=== PATIENT | female | born 1960 | race American Indian/Alaskan Native ===

== ENCOUNTER 2018-05-30 06:37 | Day surgery (SDC) | payer BC ==
[2018-05-30 07:09] VITALS: BMI 45.7
[2018-05-30 07:28] VITALS: TEMP 97.6
--- NOTE | 2018-05-30 08:32 | CP.SDSHP ---
Same Day Surgery H & P - History Proposed Procedure: colonoscopy Pre-Op Diagnosis: screening - Previous Medical/Surgical History Cardiac: Hypertension Pulmonary: Asthma - Allergies Allergies: Allergies HAY FEVER Allergy (Uncoded 05/30/18 07:15) CONGESTION - Physical Exam General Appearance: NAD Vital Signs: Vital Signs 05/30/18 07:17 Temperature 97.6 F Pulse Rate 58 L Respiratory 20 Rate Blood Pressure 161/72 H O2 Sat by Pulse 99 Oximetry Mental Status: Alert & Oriented x3 Neuro: WNL Heart: WNL Lungs: WNL GI: WNL - {Optional Preform as Required} Abdomen: WNL - Impression Pt. Evaluated Today:Candidate for Anesthesia & Procedure: Yes - Date & Time Date: 05/30/18 Time: 08:32 Short Stay Discharge - Short Stay Discharge Admitting Diagnosis/Reason for Visit: SCREENING Disposition: HOME/ ROUTINE
[2018-05-30] MEDS ORDERED: Lactated Ringer's 500 ML IV ONE (08:34)
[2018-05-30] MEDS ORDERED: Propofol 10 mg/ml Inj (20 ML) ONE (08:38)
[2018-05-30 08:44] VITALS: O2SAT 100
[2018-05-30 14:47] VITALS: RESP 17
[2018-05-30 14:50] VITALS: BP 157/82; PULSE 66
== END 2018-05-30 10:30 | disposition home or self-care (01) ==
LOC: C.ENDO 06:37
PROVIDERS: ATTEND Internal Medicine Gastroenterology
DX: Z12.11 Encounter for screening for malignant neoplasm of colon (principal); I10 Essential (primary) hypertension; J45.909 Unspecified asthma, uncomplicated; K64.1 Second degree hemorrhoids; K57.30 Diverticulosis of large intestine without perforation or abscess without bleeding; K63.5 Polyp of colon
CPT/HCPCS: 45380; 88305; J2704; J7120